=== PATIENT | female | born 1950 | race Caucasian/White ===

== ENCOUNTER 2019-05-25 08:00 | Outpatient (CLI) | payer MEDICARE | END 2019-05-25 23:59 | disposition home or self-care (01) | LOC: LAB.R 08:00 | PROVIDERS: ATTEND Internal Medicine | DX: I10 Essential (primary) hypertension (principal) | CPT/HCPCS: 81599; 82384; 82570; 83835 ==

== ENCOUNTER 2020-09-02 16:28 | Emergency (ER) | payer MEDICARE ==
--- NOTE | 2020-09-02 17:02 | XRAY Report ---
PROCEDURE: Chest 1 View X-Ray INDICATIONS: Chest Pain TECHNIQUE: One view of the chest was acquired. COMPARISON: 03/23/2010 FINDINGS: Surgical changes and devices: There are postsurgical changes from prior lower cervical spinal fusion. . Lungs and pleura: No pleural effusions or pneumothorax. Lungs are clear. Mediastinum: Mediastinal contours appear normal. Heart size is normal. Bones and chest wall: No suspicious bony lesions. Overlying soft tissues appear unremarkable. IMPRESSION: Chest without acute cardiopulmonary abnormalities. Reviewed by: Alber Gaines MD on 09/02/2020 5:01 PM PST Approved by: Alber Gaines MD on 09/02/2020 5:01 PM PST Station ID: [id number]
--- NOTE | 2020-09-02 17:05 | ED Physician Documentation ---
PD HPI DYSPNEA - Stated complaint Stated Complaint: PHYSICIAN REFFERAL, HEART - Chief complaint Chief Complaint: Cardiac - History obtained from History obtained from: Patient - History of Present Illness Timing - onset: How many days ago (3) Timing - onset during: Light activity Timing - duration: Minutes Timing - details: Gradual onset, Still present Inciting event(s): Other (has taken some prednisone) Improved by: Rest Worsened by: Exertion Associated symptoms: Palpitations. No: Fever, Cough, Hemoptysis, Wheezing, Chest pain / discomfort, Diaphoresis, Bilateral edema Similar symptoms before: No diagnosis Recently seen: Other - Additional information Additional information: 70-year-old female with a history of lupus has had a recent flare of her lupus and fibromyalgia and she started back on some prednisone about 1 week ago she is down to the 5 mg pill and she thinks he might of started at 30 mg. She has been very reluctant to take prednisone as it took her quite a while to get off after she had been on it for 3 years. She had not been on it for quite some time and her palpitations with standing had been improved. She has noted now over the past 2 days that she is getting palpitations every time she stands up. She has not fainted. She has had these palpitations happen to her previously intermittently and not with each time she stood. She consulted her physician by phone today and asked her to come to the emergency department. Review of Systems Constitutional: denies: Fever Eyes: denies: Decreased vision Ears: denies: Ear pain Nose: denies: Congestion Throat: denies: Sore throat Cardiac: reports: Palpitations. denies: Chest pain / pressure Respiratory: denies: Dyspnea, Cough, Wheezing GI: denies: Abdominal Pain, Nausea, Vomiting : denies: Dysuria, Frequency PD PAST MEDICAL HISTORY - Past Medical History Cardiovascular: Hypertension, Murmur Respiratory: Asthma, Shortness of breath Endocrine/Autoimmune: Systemic lupus erythematosus GI: GERD : None HEENT: None Psych: Depression Musculoskeletal: Fibromyalgia, Osteoporosis Derm: None - Past Surgical History General: Colonoscopy Ortho: Arthroscopic surgery, Other /[employer]: section, Hysterectomy HEENT: Cataracts - Present Medications Home Medications: Ambulatory Orders Medication Instructions Recorded Confirmed Albuterol Sulfate [Proair Hfa 2 puffs INH Q4HR 08/17/16 09/02/20 Inhaler] lamoTRIgine [LaMICtal] 50 mg PO BID 08/17/16 09/02/20 Citalopram Hydrobromide [Celexa] 1 tab PO DAILY 09/02/20 09/02/20 predniSONE [Prednisone 21-TAB dose 09/02/20 pack] - Allergies Allergies/Adverse Reactions: Allergies Allergy/AdvReac Type Severity Reaction Status Date / Time cefaclor [From Ceclor] Allergy Intermediate Hallucinati Verified 09/02/20 16:37 ons amoxicillin [From Augmentin] Allergy Emesis Verified 09/02/20 16:38 clavulanic acid Allergy Emesis Verified 09/02/20 16:38 [From Augmentin] morphine Allergy Itching Verified 09/02/20 16:37 scopolamine Allergy Hallucinati Verified 09/02/20 16:37 ons niacin AdvReac Mild Unknown Verified 09/02/20 16:37 PD ED PE NORMAL - Vitals Vital signs reviewed: Yes (hypertensive ) - General General: Alert and oriented X 3, No acute distress, Well developed/nourished - HEENT HEENT: Atraumatic, PERRL, EOMI - Neck Neck: Supple, no meningeal sign, No bony TTP - Cardiac Cardiac: RRR, No murmur - Respiratory Respiratory: No respiratory distress, Clear bilaterally - Abdomen Abdomen: Normal bowel sounds, Soft, Non tender, Non distended, No organomegaly - Back Back: No CVA TTP, No spinal TTP - Derm Derm: Normal color, Warm and dry, No rash - Extremities Extremities: No deformity, No edema - Neuro Neuro: Alert and oriented X 3, electrical tryout person 2-12 intact, No motor deficit, No sensory deficit, Normal speech Eye Opening: Spontaneous Motor: Obeys Commands Verbal: Oriented GCS Score: 15 - Psych Psych: Normal mood, Normal affect Results - Vitals Vitals: Vital Signs - 24 hr 09/02/20 16:34 Temperature 36.2 C L Heart Rate 61 Respiratory 20 Rate Blood Pressure 177/70 H O2 Saturation 98 Oxygen O2 Source Room air - EKG (time done) 1637 Rate: Rate (enter#) (51) Rhythm: NSR, LAE Compare to prior EKG: Old EKG unavailable Computer interpretation: Agree with computer - Labs Labs: Laboratory Tests 09/02/20 09/02/20 09/02/20 17:12 17:12 17:12 WBC 10.1 RBC 4.92 Hgb 13.9 Hct 43.2 MCV 87.8 MCH 28.3 MCHC 32.2 RDW 13.9 Plt Count 217 MPV 11.9 H Neut # (Auto) 8.0 H Lymph # (Auto) 1.5 [place] # (Auto) 0.4 Eos # (Auto) 0.0 Baso # (Auto) 0.1 Absolute Nucleated RBC 0.00 Nucleated RBC % 0.0 Sodium 137 Potassium 4.3 Chloride 100 L Carbon Dioxide 27 Anion Gap 10.0 BUN 22 H Creatinine 0.9 Estimated GFR (MDRD) 62 L Glucose 109 H Calcium 9.6 Total Bilirubin 0.4 AST 20 ALT 19 Alkaline Phosphatase 124 H Troponin I High Sens 6.3 Total Protein 7.6 Albumin 4.1 Globulin 3.5 Albumin/Globulin Ratio 1.2 Lipase 47 - Rads (name of study) chest Radiology: Prelim report reviewed (Impression: Chest without acute cardiopulmonary abnormalities.) Procedures - IVC sono (time) 1740 Bedside IVC sono: IVC measures (cm) (1.12), Dehydration (est 1+ liter deficit) PD MEDICAL DECISION MAKING - ED course Complexity details: reviewed old records, reviewed results, re-evaluated patient, considered differential, d/w patient ED course: 70-year-old female with a history of palpitations when standing is mildly dehydrated on interrogation the inferior vena cava and she is administered a liter of saline. I suspect her orthostatic palpitations may be related to her consumption of steroid again and I have asked her to follow-up with her primary care doctor regarding potential use of Florinef or midodrine. Departure - Departure Disposition: 01 Home, Self Care Clinical Impression: Dehydration, Postural orthostatic tachycardia syndrome Condition: Stable Instructions: ED Dehydration, ED Hypotension Orthostatic Follow-Up: Trev De León MD [Primary Care Provider] - Comments: Today we did not find an issue with your heart and I suspect that the rapid heart rate you have when you stand is related to the dehydration and the use of steroids. Talk to your doctor about potential use of midodrine or florinef for stabilizing this condition.
[2020-09-02 17:28] LABS: BASOPHILS # (AUTO) 0.1 10^3/uL (0.0-0.1); EOSINOPHILS % (AUTO) 0.1 %; HGB - HEMOGLOBIN 13.9 g/dL (12.0-16.0); LYMPHOCYTES # (AUTO) 1.5 10^3/uL (1.5-3.5); LYMPHOCYTES % (AUTO) 14.9 %; MEAN CORPUSCULAR HEMOGLOBIN 28.3 pg (27.0-31.0); MEAN CORPUSCULAR HGB CONC 32.2 g/dL (32.0-36.0); MEAN CORPUSCULAR VOLUME 87.8 fL (81.0-99.0); MEAN PLATELET VOLUME 11.9 fL (7.9-10.8); MONOCYTES # (AUTO) 0.4 10^3/uL (0.0-1.0); NEUTROPHILS % (AUTO) 79.5 %; PLT - PLATELET COUNT 217 10^3/uL (130-450); RED BLOOD COUNT 4.92 10^6/uL (4.20-5.40); RED CELL DISTRIBUTION WIDTH 13.9 % (12.0-15.0); WHITE BLOOD COUNT 10.1 x10^3/uL (4.8-10.8)
[2020-09-02 17:35] LABS: ALBUMIN 4.1 g/dL (3.2-5.5); ALBUMIN/GLOBULIN RATIO 1.2 (1.0-2.2); BILIRUBIN,TOTAL 0.4 mg/dL (0.2-1.0); CALCIUM 9.6 mg/dL (8.5-10.3); CREATININE 0.9 mg/dL (0.4-1.0); TOTAL PROTEIN 7.6 g/dL (6.7-8.2)
[2020-09-02] MEDS ORDERED: SODIUM CHLORIDE 0.9% 1,000 ML IV STA (17:45)
[2020-09-02 18:36] VITALS: BP 209/88
== END 2020-09-02 18:47 | disposition home or self-care (01) ==
LOC: ED 16:28
DX: E86.0 Dehydration (principal); I49.8 Other specified cardiac arrhythmias; I10 Essential (primary) hypertension; L93.0 Discoid lupus erythematosus
CPT/HCPCS: 36415; 80053; 83690; 84484; 85025; 93005; 96360; 99284